=== PATIENT | female | born 1990 | race African-American/Black ===

== ENCOUNTER 2017-08-18 05:50 | Day surgery (SDC) | payer OTHER ==
[~2017-08-18] VITALS: Ht 147.3 cm; Wt 56.7 kg
[2017-08-18] VITALS (8 sets, daily range): BP systolic 130–162; BP diastolic 85–93
[~2017-08-18 05:50] MED LIST: **UNRESOLVED NON-FORMULARY MED ORDER XX SCH; ADDE10CA3 PO; DULO1CAP2 PO; IBUP1TAB6 PO; TRAZ-136 PO
[2017-08-18] MEDS ORDERED: LIDOCAINE 1% MDV 20ML VIAL SC ONE (06:00)
[2017-08-18] MEDS ORDERED: LR 1,000 ML IV ONE (06:00)
[2017-08-18 06:30] LABS: MEAN CORPUSCULAR HEMOGLOBIN 24.4 pg (27.0-33.0); MEAN CORPUSCULAR HGB CONC 31.8 g/dl (32.0-36.5); MEAN CORPUSCULAR VOLUME 76.7 fl (80.0-96.0); RED CELL DISTRIBUTION WIDTH 13.1 % (11.5-14.5); WHITE BLOOD COUNT 7.2 10^3/uL (4.0-10.0)
[2017-08-18] MEDS ORDERED: SCOPOLAMINE 1.5 MG TRANSDERMAL As Ordered ONE (07:07)
[2017-08-18] MEDS ORDERED: dexameTHASONE 4 MG/ML 1ML VIAL (J1100) As Ordered ONE (07:11)
[2017-08-18] MEDS ORDERED: GLYCOPYRROLATE INJ 0.2 MG/ML 2 ML VIAL As Ordered ONE (07:11)
[2017-08-18] MEDS ORDERED: ROCURONIUM BROMIDE 50 MG/5 ML VIAL/SYRINGE As Ordered ONE (07:11)
[2017-08-18] MEDS ORDERED: NEOSTIGMINE 10 MG/10 ML VIAL (J2710) As Ordered ONE (07:11)
[2017-08-18] MEDS ORDERED: LIDOCAINE 2% INJ 100 MG/5 ML SDV (FOR ANES.) As Ordered ONE (07:11)
[2017-08-18] MEDS ORDERED: ONDANSETRON 4MG/2ML VIAL (J2405) As Ordered ONE (07:11)
[2017-08-18] MEDS ORDERED: PROPOFOL 200 MG/20 ML VIAL As Ordered ONE (07:11)
[2017-08-18] MEDS ORDERED: fentaNYL 100 MCG/2 ML INJECTION (J3010) As Ordered ONE ×2 (07:12→09:03)
[2017-08-18] MEDS ORDERED: MIDAZOLAM INJ 2 MG/2 ML VIAL (J2250) As Ordered ONE (07:12)
[2017-08-18] MEDS ORDERED: HYDROmorphone HCL 2 MG/ML 1ML VIAL (J1170) As Ordered ONE (07:12)
[2017-08-18] MEDS ORDERED: SCOPOLAMINE 1.5 MG TRANSDERMAL TOP ONE (07:15)
[2017-08-18] MEDS ORDERED: MORPHINE 1MG/ML IN 0.9% NACL 100ML IV BAG As Ordered ONE (08:44)
[2017-08-18] MEDS ORDERED: MORPHINE 2 MG/ML 1ML SYRINGE IV PRN (09:15)
[2017-08-18] MEDS ORDERED: fentaNYL 100 MCG/2 ML INJECTION (J3010) IV PRN (09:15)
[2017-08-18] MEDS ORDERED: ONDANSETRON 4MG/2ML VIAL (J2405) IV PRN ×2 (09:15→09:30)
[2017-08-18] MEDS ORDERED: LR 1,000 ML IV SCH (09:15)
[2017-08-18] MEDS ORDERED: METOCLOPRAMIDE INJ 10MG/2ML VIAL (J2765) IV PRN (09:15)
[2017-08-18] MEDS ORDERED: NALBUPHINE HCL 10 MG/ML AMP (J2300) IV PRN (09:30)
[2017-08-18] MEDS ORDERED: NALOXONE INJ 0.4 MG/1 ML VIAL (J2310) IV PRN (09:30)
[2017-08-18] MEDS ORDERED: EPIDURAL/PCA KEYS XX PRN (09:30)
[2017-08-18] MEDS ORDERED: MORPHINE 1MG/ML IN 0.9% NACL 100ML IV BAG IV PRN (09:30)
[2017-08-18] MEDS ORDERED: PROMETHAZINE INJ 25 MG/ML VIAL (J2550) As Ordered ONE (09:39)
[2017-08-18] MEDS: PERCOCET 5MG/325MG TAB PO PRN ×2 (09:45→09:55)
[2017-08-18] MEDS: PROMETHAZINE INJ 25 MG/ML VIAL (J2550) IV PRN ×2 (09:45→09:55)
--- NOTE | 2017-08-18 09:48 | RO ---
DATE OF PROCEDURE: 08/18/2017 PREPROCEDURE DIAGNOSIS: Pain, tenderness, bleeding and dyspareunia. POSTPROCEDURE DIAGNOSIS: Pain, tenderness, bleeding and dyspareunia. PROCEDURE: Total vaginal hysterectomy. SURGEON: Dr. Helena Alexander. BOLTER HELPER: None. ANESTHESIA: General endotracheal anesthesia. DESCRIPTION OF PROCEDURE: Elodia was brought to the operating room where sufficient general endotracheal anesthesia was induced. She was prepped, draped and positioned in the usual sterile fashion. The bladder was emptied with a straight catheter and the anterior and posterior aspects of the cervix were grasped with single-tooth tenacula. A circumferential incision was made around the base of the cervix and the cardial ligaments were then isolated, clamped, transected and ligated using the MastersEckert clamps which were used throughout and 0 Vicryl suture, which was used throughout. The uterosacral ligaments were then clamped transected and ligated and held for later re-attachment to the cuff in this young patient. The posterior reflection of the peritoneum was entered. The [place] retractor was placed and the uterine vasculature was carefully clamped, transected and ligated along the lateral aspect of the uterus. We reached the level of the section scar and I was able to reach my finger around the uterus to delineate the reflection of the visceral peritoneum anteriorly and then enter anteriorly and displace the bladder safely away from the operative field. We then continued the dissection along the lateral aspect of the uterus clamping, transecting and ligating the uterine vasculature until the level of the round ligament was reached and the utero-ovarian suspensory ligament was reached. These were also clamped, transected and ligated. I was able to see that the patient's report of previous salpingectomy was clearly accurate. Her ovaries were normal bilaterally both to visualization and palpation. After we completed the dissection to the broad ligament, the uterus was delivered and handed off to be sent to pathology. The pedicles were readily visualized using a sponge on a stick and the retractors. Good hemostasis was confirmed. We re-secured the uterosacrals to the cuff in the typical fashion and angle stitches of 0 Vicryl were taken in the vaginal cuff. It was then closed with a running locked stitch of 0 Vicryl with good approximation and hemostasis achieved. The procedure was then ended. ESTIMATED BLOOD LOSS: 50 mL. FLUID REPLACEMENT: Crystalloid. COMPLICATIONS: None. CONDITION AND DISPOSITION: Elodia tolerated the procedure well and was recovering in the recovery room in good condition. JUNI
[2017-08-18] MEDS ORDERED: SUGAMMADEX SODIUM 500 MG/5 ML VIAL (BRIDION) As Ordered ONE (09:49)
[2017-08-18] MEDS: LR 1,000 ML IV SCH ×3 (10:25→20:08)
[2017-08-18] MEDS: IBUPROFEN 600 MG TAB PO PRN (13:54)
[2017-08-18] MEDS: diphenhydrAMINE INJ 50MG/ML VIAL (J1200) IV PRN (20:08)
[2017-08-18] MEDS ORDERED: PROMETHAZINE INJ 25 MG/ML VIAL (J2550) IV ONE (20:45)
[2017-08-19] VITALS: BP 122/72
[2017-08-19 04:00] VITALS: BP 128/78
[2017-08-19] MEDS: diphenhydrAMINE INJ 50MG/ML VIAL (J1200) IV PRN (05:42)
[2017-08-19] MEDS ORDERED: NORCO, ANEXSIA 5/325MG TABLET (HYDROcodone/ACETAMINOPHEN) PO PRN (06:00)
[2017-08-19 07:33] LABS: MEAN CORPUSCULAR HEMOGLOBIN 23.9 pg (27.0-33.0); MEAN CORPUSCULAR HGB CONC 31.3 g/dl (32.0-36.5); MEAN CORPUSCULAR VOLUME 76.3 fl (80.0-96.0); PLATELET COUNT, AUTOMATED 286 10^3/uL (150-450); RED CELL DISTRIBUTION WIDTH 13.2 % (11.5-14.5); WHITE BLOOD COUNT 16.7 10^3/uL (4.0-10.0)
[2017-08-19 08:00] VITALS: BP 129/81
[2017-08-19] MEDS: IBUPROFEN 600 MG TAB PO PRN (08:11)
[2017-08-19] MEDS ORDERED: PERCOCET 5MG/325MG TAB PO PRN (09:15)
[2017-08-19] MEDS ORDERED: traZODone 100 MG TAB PO SCH (21:00)
== END 2017-08-19 10:20 | disposition home or self-care (01) ==
LOC: M SDC 05:50 → M PED 10:53 → M SDC 08-19 10:20
PROVIDERS: ATTEND Obstetrics & Gynecology
DX: N94.10 Unspecified dyspareunia (principal); R10.2 Pelvic and perineal pain; J45.909 Unspecified asthma, uncomplicated; F41.9 Anxiety disorder, unspecified; G43.909 Migraine, unspecified, not intractable, without status migrainosus; G47.00 Insomnia, unspecified; D64.9 Anemia, unspecified; R87.810 Cervical high risk human papillomavirus (HPV) DNA test positive; M41.9 Scoliosis, unspecified; Z88.8 Allergy status to other drugs, medicaments and biological substances; Z79.899 Other long term (current) drug therapy; Z98.51 Tubal ligation status
CPT/HCPCS: 36415; 58290; 85027; 86850; 86900; 86901; 88307; 96374; 96375; 96376; J0690; J1100; J1170; J1200; J2250; J2405; J2710; J3010

== ENCOUNTER → 2017-12-05 | Outpatient (REF) | payer OTHER ==
[2017-12-05 18:05] LABS: INFLUENZA A AMPLIFICATION NEGATIVE (NEGATIVE); INFLUENZA B AMPLIFICATION NEGATIVE (NEGATIVE)
== END ==
LOC: M LAB REF 17:12
DX: R50.9 Fever, unspecified (principal)

== ENCOUNTER → 2017-12-22 | Outpatient (CLI) | payer OTHER ==
[2017-12-22 09:43] LABS: HEMATOCRIT 36.6 % (36.0-47.0); HEMOGLOBIN 11.3 g/dl (12.0-16.0); MEAN CORPUSCULAR HEMOGLOBIN 23.9 pg (27.0-33.0); MEAN CORPUSCULAR HGB CONC 30.9 g/dl (32.0-36.5); MEAN CORPUSCULAR VOLUME 77.5 fl (80.0-96.0); PLATELET COUNT, AUTOMATED 260 10^3/uL (150-450); RED BLOOD COUNT 4.72 10^6/uL (4.00-5.40); WHITE BLOOD COUNT 7.2 10^3/uL (4.0-10.0)
[2017-12-22 09:52] LABS: APPEARANCE, URINE HAZY (CLEAR); BACTERIA, URINE AUTO 1+ (NEGATIVE); BILIRUBIN, URINE AUTO NEGATIVE (NEGATIVE); BLOOD, URINE BLOOD NEGATIVE (NEGATIVE); COLOR, URINE YELLOW (YELLOW); GLUCOSE, URINE (UA) AUTO NEGATIVE (NEGATIVE); KETONE, URINE AUTO NEGATIVE (NEGATIVE); LEUKOCYTE ESTERASE, URINE AUTO NEGATIVE (NEGATIVE); MUCUS, URINE SMALL (NEGATIVE); NITRITE, URINE AUTO NEGATIVE (NEGATIVE); PROTEIN, URINE AUTO 1+ mg/dL (NEGATIVE); RBC, URINE AUTO 5 /HPF (0-3); SPECIFIC GRAVITY URINE AUTO 1.012 (1.002-1.035); SQUAMOUS EPITHELIAL CELL UR AU 3 /HPF (0-6); UROBILINOGEN, URINE AUTO 0.2 mg/dL (0.0-2.0); WBC, URINE AUTO 2 /HPF (0-3)
[2017-12-22 09:53] LABS: INR 1.11; PROTHROMBIN TIME 14.5 SECONDS (12.4-14.5)
[2017-12-22 09:54] LABS: PARTIAL THROMBOPLASTIN TIME 38.1 SECONDS (26.8-37.9)
[2017-12-22 10:08] LABS: ALBUMIN/GLOBULIN RATIO 0.93 (1.00-1.93); ALKALINE PHOSPHATASE 45 U/L (45-117); ALT/SGPT 14 U/L (12-78); ANION GAP 6 MEQ/L (8-16); AST/SGOT 10 U/L (7-37); BILIRUBIN,TOTAL 0.3 MG/DL (0.2-1.0); BLOOD UREA NITROGEN 10 MG/DL (7-18); CARBON DIOXIDE LEVEL 28 MEQ/L (21-32); CHLORIDE LEVEL 105 MEQ/L (98-107); CREATININE FOR GFR 0.76 MG/DL (0.55-1.30); GLOMERULAR FILTRATION RATE > 60.0 (>60); GLUCOSE, FASTING 96 MG/DL (70-100); HCG, SERUM QUANTITATIVE < 1.0 MIU/ML; POTASSIUM SERUM 3.9 MEQ/L (3.5-5.1); SODIUM LEVEL 139 MEQ/L (136-145); TOTAL PROTEIN 8.3 GM/DL (6.4-8.2)
== END ==
LOC: M LAB 09:03
DX: Z01.818 Encounter for other preprocedural examination (principal)

== ENCOUNTER → 2017-12-27 | Outpatient (CLI) | payer OTHER ==
[2017-12-27 13:18] LABS: APPEARANCE, URINE MANUAL CLEAR (CLEAR); BILIRUBIN, URINE MANUAL NEGATIVE (NEGATIVE); BLOOD URINE MANUAL TRACE (NEGATIVE); COLOR, URINE MANUAL YELLOW (YELLOW); GLUCOSE, URINE (UA) MANUAL NEGATIVE (NEGATIVE); HEMATOCRIT 37.7 % (36.0-47.0); HEMOGLOBIN 11.8 g/dl (12.0-16.0); KETONE, URINE MANUAL NEGATIVE (NEGATIVE); LEUKOCYTE ESTERASE, URINE MAN NEGATIVE (NEGATIVE); MEAN CORPUSCULAR HEMOGLOBIN 24.8 pg (27.0-33.0); MEAN CORPUSCULAR HGB CONC 31.3 g/dl (32.0-36.5); MEAN CORPUSCULAR VOLUME 79.4 fl (80.0-96.0); MICROSCOPIC INDICATED? MAN YES (NO); NITRITE, URINE MANUAL NEGATIVE (NEGATIVE); PLATELET COUNT, AUTOMATED 293 10^3/uL (150-450); PROTEIN, URINE MANUAL 1+ mg/dL (NEGATIVE); RED BLOOD COUNT 4.75 10^6/uL (4.00-5.40); RED CELL DISTRIBUTION WIDTH 14.3 % (11.5-14.5); SPECIFIC GRAVITY,URINE MANUAL 1.015 (1.002-1.035); UROBILINOGEN, URINE MANUAL NORMAL (NORMAL); WHITE BLOOD COUNT 6.8 10^3/uL (4.0-10.0)
[2017-12-27 13:26] LABS: BACTERIA, URINE SMALL AMOUNT; HYALINE CAST, URINE NONE SEEN /lpf (0-1); MUCUS, URINE MOD AMOUNT (NEGATIVE); RBC, URINE 0-1 /hpf (0-3); WBC, URINE 0-1 /hpf (0-3)
[2017-12-27 13:27] LABS: MICROSCOPIC EXAM PERFORMED; SQUAMOUS EPITHELIAL CELL URINE SMALL AMOUNT /hpf (SMALL AMT)
[2017-12-27 13:28] LABS: INR 1.08; PROTHROMBIN TIME 14.2 SECONDS (12.4-14.5)
[2017-12-27 13:29] LABS: PARTIAL THROMBOPLASTIN TIME 37.5 SECONDS (26.8-37.9)
[2017-12-27 13:37] LABS: ALBUMIN 4.1 GM/DL (3.2-5.2); ALBUMIN/GLOBULIN RATIO 1.03 (1.00-1.93); ALKALINE PHOSPHATASE 45 U/L (45-117); ALT/SGPT 14 U/L (12-78); ANION GAP 7 MEQ/L (8-16); AST/SGOT 11 U/L (7-37); BILIRUBIN,TOTAL 0.3 MG/DL (0.2-1.0); BLOOD UREA NITROGEN 14 MG/DL (7-18); CALCIUM LEVEL 8.9 MG/DL (8.5-10.1); CARBON DIOXIDE LEVEL 27 MEQ/L (21-32); CHLORIDE LEVEL 104 MEQ/L (98-107); CREATININE FOR GFR 0.81 MG/DL (0.55-1.30); GLOMERULAR FILTRATION RATE > 60.0 (>60); GLUCOSE, FASTING 87 MG/DL (70-100); HCG, SERUM QUANTITATIVE < 1.0 MIU/ML; POTASSIUM SERUM 4.5 MEQ/L (3.5-5.1); SODIUM LEVEL 138 MEQ/L (136-145); TOTAL PROTEIN 8.1 GM/DL (6.4-8.2)
== END ==
LOC: M SMT 10:18
DX: Z01.818 Encounter for other preprocedural examination (principal)
CPT/HCPCS: 80053

== ENCOUNTER → 2018-01-03 | Outpatient (CLI) | payer OTHER ==
[2018-01-03 21:04] LABS: HEMATOCRIT 36.8 % (36.0-47.0); HEMOGLOBIN 11.5 g/dl (12.0-16.0); MEAN CORPUSCULAR HEMOGLOBIN 24.9 pg (27.0-33.0); MEAN CORPUSCULAR HGB CONC 31.3 g/dl (32.0-36.5); MEAN CORPUSCULAR VOLUME 79.8 fl (80.0-96.0); PLATELET COUNT, AUTOMATED 272 10^3/uL (150-450); RED BLOOD COUNT 4.61 10^6/uL (4.00-5.40); RED CELL DISTRIBUTION WIDTH 14.1 % (11.5-14.5); WHITE BLOOD COUNT 8.6 10^3/uL (4.0-10.0)
== END ==
LOC: M LRY 16:25
DX: Z01.818 Encounter for other preprocedural examination (principal)
CPT/HCPCS: 85027

== ENCOUNTER → 2018-01-05 | Outpatient (CLI) | payer OTHER ==
[2018-01-05 10:49] LABS: BASO # 0.1 10^3/uL (0.0-0.2); BASO % 0.9 % (0.0-1.0); EOS # 0.2 10^3/uL (0.0-0.50); EOS % 3.1 % (0.0-3.0); HEMOGLOBIN 11.4 g/dl (12.0-16.0); IMMATURE GRANULOCYTE % 0.4 % (0-3.0); LYMPH # 2.6 10^3/uL (1.5-6.5); LYMPH % 34.2 % (24.0-44.0); MEAN CORPUSCULAR HEMOGLOBIN 24.5 pg (27.0-33.0); MEAN CORPUSCULAR HGB CONC 30.8 g/dl (32.0-36.5); MEAN CORPUSCULAR VOLUME 79.6 fl (80.0-96.0); MONO # 0.5 10^3/uL (0.0-0.8); MONO % 6.2 % (0.0-5.0); NEUTROPHILS # 4.2 10^3/uL (1.8-7.7); NEUTROPHILS % 55.2 % (36.0-66.0); PLATELET COUNT, AUTOMATED 246 10^3/uL (150-450); RED BLOOD COUNT 4.65 10^6/uL (4.00-5.40); RED CELL DISTRIBUTION WIDTH 14.3 % (11.5-14.5); WHITE BLOOD COUNT 7.6 10^3/uL (4.0-10.0)
== END ==
LOC: M LAB 10:07
DX: D64.9 Anemia, unspecified (principal)

== ENCOUNTER 2018-01-24 11:15 | Emergency (ER) | payer OTHER | END 2018-01-24 14:57 | disposition home or self-care (01) | LOC: M ED 11:15 | DX: L98.9 Disorder of the skin and subcutaneous tissue, unspecified (principal); Z53.21 Procedure and treatment not carried out due to patient leaving prior to being seen by health care provider ==

== ENCOUNTER → 2019-01-31 | Outpatient (CLI) | payer OTHER ==
[~2019-01-31] MED LIST changes: -**UNRESOLVED NON-FORMULARY MED ORDER XX SCH; +CYCL10TA; -TRAZ-136 PO; +TRAZ-163 PO
[2019-01-31 10:22] LABS: BASO # 0.1 10^3/uL (0.0-0.2); EOS # 0.3 10^3/uL (0.0-0.50); EOS % 3.6 % (0.0-3.0); HEMATOCRIT 40.5 % (36.0-47.0); HEMOGLOBIN 12.6 g/dl (12.0-15.5); LYMPH # 2.5 10^3/uL (1.5-6.5); LYMPH % 34.9 % (24.0-44.0); MEAN CORPUSCULAR HEMOGLOBIN 25.8 pg (27.0-33.0); MEAN CORPUSCULAR HGB CONC 31.1 g/dl (32.0-36.5); MONO # 0.4 10^3/uL (0.0-0.8); MONO % 5.8 % (0.0-5.0); NEUTROPHILS # 3.8 10^3/uL (1.8-7.7); NEUTROPHILS % 54.4 % (36.0-66.0); PLATELET COUNT, AUTOMATED 301 10^3/uL (150-450); RED BLOOD COUNT 4.88 10^6/uL (4.00-5.40)
[2019-01-31 11:00] LABS: BLOOD UREA NITROGEN 11 MG/DL (7-18); CARBON DIOXIDE LEVEL 27 MEQ/L (21-32); CHLORIDE LEVEL 105 MEQ/L (98-107); CHOLESTEROL LEVEL 194 MG/DL (<200); CREATININE FOR GFR 0.92 MG/DL (0.55-1.30); FREE T4 0.94 NG/DL (0.76-1.46); GLOMERULAR FILTRATION RATE > 60.0 (>60); GLUCOSE, FASTING 77 MG/DL (70-100); HDL CHOLESTEROL 52 MG/DL (>40); LDL CHOLESTEROL 120 MG/DL (<100); LIPASE 187 U/L (73-393); NON-HDL-C 142 MG/DL; POTASSIUM SERUM 4.3 MEQ/L (3.5-5.1); SODIUM LEVEL 138 MEQ/L (136-145); THYROID STIMULATING HORMONE 0.981 uIU/ML (0.358-3.740); TRIGLYCERIDES LEVEL 109 MG/DL (<150)
[2019-01-31 11:31] LABS: HEMOGLOBIN A1c 5.2 %
== END ==
LOC: M LAB 09:29
PROVIDERS: ATTEND Physician Assistant
DX: R74.8 Abnormal levels of other serum enzymes (principal); F41.1 Generalized anxiety disorder

== ENCOUNTER → 2019-04-05 | Outpatient (CLI) | payer OTHER ==
[2019-04-05 09:05] LABS: BASO # 0.1 10^3/uL (0.0-0.2); BASO % 0.9 % (0.0-1.0); EOS # 0.2 10^3/uL (0.0-0.50); HEMATOCRIT 40.4 % (36.0-47.0); HEMOGLOBIN 12.6 g/dl (12.0-15.5); LYMPH # 2.2 10^3/uL (1.5-4.5); LYMPH % 28.5 % (24.0-44.0); MEAN CORPUSCULAR HEMOGLOBIN 26.6 pg (27.0-33.0); MEAN CORPUSCULAR HGB CONC 31.2 g/dl (32.0-36.5); MEAN CORPUSCULAR VOLUME 85.4 fl (80.0-96.0); MONO # 0.5 10^3/uL (0.0-0.8); NEUTROPHILS # 4.7 10^3/uL (1.8-7.7); NEUTROPHILS % 61.2 % (36.0-66.0); PLATELET COUNT, AUTOMATED 261 10^3/uL (150-450); RED BLOOD COUNT 4.73 10^6/uL (4.00-5.40); WHITE BLOOD COUNT 7.7 10^3/uL (4.0-10.0)
[2019-04-05 09:40] LABS: ALBUMIN 3.9 GM/DL (3.2-5.2); ALT/SGPT 15 U/L (12-78); BILIRUBIN,TOTAL 0.2 MG/DL (0.2-1.0); BLOOD UREA NITROGEN 8 MG/DL (7-18); CALCIUM LEVEL 9.4 MG/DL (8.5-10.1); CARBON DIOXIDE LEVEL 29 MEQ/L (21-32); CHLORIDE LEVEL 104 MEQ/L (98-107); CREATININE FOR GFR 0.86 MG/DL (0.55-1.30); FOLLICLE STIMULATING HORMONE 9.6 mIU/mL; GLOMERULAR FILTRATION RATE > 60.0 (>60); GLUCOSE, FASTING 81 MG/DL (70-100); LUTEINIZING HORMONE 37.4 mIU/mL; POTASSIUM SERUM 4.1 MEQ/L (3.5-5.1); SODIUM LEVEL 138 MEQ/L (136-145); THYROID STIMULATING HORMONE 0.827 uIU/ML (0.358-3.740); THYROXINE (T4) 8.3 UG/DL (4.5-12.0); TOTAL PROTEIN 7.8 GM/DL (6.4-8.2)
[2019-04-05 09:45] LABS: ERYTHROCYTE SEDIMENTATION RATE 12 mm/hr (0-20)
[2019-04-07 00:06] LABS: ANTI DOUBLE STRAND-DNA AB 4 IU/mL (0-9); ANTINUCLEAR ANTIBODIES DIRECT Positive (Negative); DEHYDROEPIANDROSTERONE SULFATE 194.3 ug/dL (84.8-378.0); RNP ANTIBODIES <0.2 AI (0.0-0.9); SJOGREN'S ANTI SS-A <0.2 AI (0.0-0.9); SJOGREN'S ANTI SS-B <0.2 AI (0.0-0.9); SMITH ANTIBODIES <0.2 AI (0.0-0.9); TESTOSTERONE FREE (DIRECT) 1.7 pg/mL (0.0-4.2)
== END ==
LOC: M LAB 07:59
PROVIDERS: ATTEND Nurse Practitioner Family
DX: L65.0 Telogen effluvium (principal)